=== PATIENT | male | born 1960 | race Caucasian/White ===

== ENCOUNTER 2021-08-05 18:57 | Emergency (ER) | payer MEDICARE, MEDICAID | END 2021-08-05 21:14 | disposition home or self-care (01) | LOC: JP.ED 18:57 | DX: S70.11XA Contusion of right thigh, initial encounter (principal); Z88.8 Allergy status to other drugs, medicaments and biological substances; Z79.899 Other long term (current) drug therapy; X58.XXXA Exposure to other specified factors, initial encounter; Y92.009 Unspecified place in unspecified non-institutional (private) residence as the place of occurrence of the external cause | CPT/HCPCS: 99283 ==